=== PATIENT | female | born 1955 | race Caucasian/White ===

== ENCOUNTER 2017-05-22 18:03 | Inpatient (IN) | payer OTHER ==
[2017-05-22] MEDS ORDERED: ONDANSETRON 4 MG/2 ML VIAL ONE ×2 (18:21→22:17)
[2017-05-22] MEDS ORDERED: ONDANSETRON 4 MG/2 ML VIAL IVP ONE ×2 (18:35→22:25)
[2017-05-22] MEDS ORDERED: NS 1,000 ML IV ONE (18:35)
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
--- NOTE | 2017-05-22 18:44 | CPEKG ---
Heart Rate: 72 RR Interval: 833 P-R Interval: 148 QRSD Interval: 84 QT Interval: 376 QTC Interval: 412 P [place]: 20 QRS [place]: 4 T Wave [place]: 25 EKG Severity - NORMAL ECG - EKG Impression: SINUS RHYTHM Electronically Signed By: Jan Mosher 22-May-2017 19:20:53
[2017-05-22 18:53] LABS: % IMMATURE GRANULYOCYTES 0.2 % (0.0-1.1); ABSOLUTE IMMATURE GRANULOCYTES 0.03 10^3/uL (0.00-0.10); ADD DIFF? NO; ADD MORPH? NO; ADD SCAN? NO; ATYPICAL LYMPHOCYTE FLAG 0 (0-99); FRAGMENT RBC FLAG 0 (0-99); HEMATOCRIT 46.2 % (38.0-47.0); HEMOGLOBIN 15.6 g/dL (12.6-16.3); LEFT SHIFT FLG 0 (0-99); LIPEMIA HEMOLYSIS FLAG 90 (0-99); MEAN CELL HEMOGLOBIN 29.5 pg (27.9-34.1); MEAN CELL HEMOGLOBIN CONCENTR. 33.8 g/dL (32.4-36.7); MEAN CELL VOLUME 87.3 fL (81.5-99.8); MEAN PLATELET VOLUME 9.1 fL (8.7-11.7); PLATELET CLUMPS FLAG 0 (0-99); PLATELET COUNT 417 10^3/uL (150-400); RED BLOOD CELL COUNT 5.29 10^6/uL (4.18-5.33); RED CELL DISTRIBUTION WIDTH 12.9 % (11.5-15.2)
[2017-05-22 19:06] LABS: ALANINE AMINOTRANSFERASE 38 IU/L (9-52); ALBUMIN 4.9 g/dL (3.5-5.0); ALKALINE PHOSPHATASE 81 IU/L (38-126); ANION GAP 16 mEq/L (8-16); ASPARTATE AMINOTRANSFERASE 25 IU/L (14-46); BILIRUBIN,TOTAL 1.3 mg/dL (0.1-1.4); BILIRUBIN-CONJUGATED 0.2 mg/dL (0.0-0.5); BILIRUBIN-UNCONJUGATED 1.1 mg/dL (0.0-1.1); CALCIUM 10.2 mg/dL (8.5-10.4); CARBON DIOXIDE 21 mEq/l (22-31); CHLORIDE 100 mEq/L (97-110); CREATININE 0.8 mg/dL (0.6-1.0); GLOMERULAR FILTRATION RATE > 60; GLUCOSE 99 mg/dL (70-100); POTASSIUM 3.9 mEq/L (3.5-5.2); SODIUM 137 mEq/L (134-144); TOTAL PROTEIN 7.7 g/dL (6.3-8.2)
[2017-05-22 19:17] LABS: TROPONIN I < 0.012 ng/mL (0-0.034)
[2017-05-22] MEDS ORDERED: IOPAMIDOL (ISOVUE-300) 100 ML BTL ONE (19:17)
[2017-05-22] MEDS ORDERED: ONDANSETRON 4 MG/2 ML VIAL IVP PRN (23:25)
[2017-05-22] MEDS: D5W 1/2 NS W/ 20 KCl/L 1,000 ML IV SCH (23:38)
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
[2017-05-23] MEDS: D5W 1/2 NS W/ 20 KCl/L 1,000 ML IV SCH (17:11)
[2017-05-24] MEDS: D5W 1/2 NS W/ 20 KCl/L 1,000 ML IV SCH ×3 (00:58→22:41)
[2017-05-24] MEDS: HYDROmorphONE/DILAUDID 1 MG/ML SYR IVP PRN ×2 (00:59→21:29)
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
[2017-05-24] MEDS ORDERED: cefOXitin SODIUM 2 GM in D5W 100 ML IV ONE (13:35)
[2017-05-24] MEDS ORDERED: LR 1,000 ML IV ONE (15:52)
[2017-05-24] MEDS ORDERED: BUPIVACAINE 0.5% 30 ML SDV ONE (16:06)
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
[2017-05-24] MEDS ORDERED: MIDAZOLAM 2 MG/2 ML VIAL IVP ONE (18:02)
[2017-05-24] MEDS ORDERED: MIDAZOLAM 2 MG/2 ML VIAL ONE (18:03)
[2017-05-24] MEDS ORDERED: fentaNYL 100 MCG/2 ML INJ ONE ×2 (18:08→19:31)
[2017-05-24] MEDS ORDERED: PROPOFOL 200 MG/20 ML VIAL ONE ×2 (18:08)
[2017-05-24] MEDS ORDERED: PHENYLEPHRINE HCL 100 MCG/ML SYR ONE (18:39)
[2017-05-24] MEDS ORDERED: ROCURONIUM 50 MG/5 ML VIAL ONE (18:42)
[2017-05-24] MEDS ORDERED: DEXAMETHASONE 4 MG/ML VIAL ONE (19:03)
[2017-05-24] MEDS ORDERED: ONDANSETRON 4 MG/2 ML VIAL ONE (19:03)
[2017-05-24] MEDS ORDERED: ONDANSETRON 4 MG/2 ML VIAL IVP PRN (19:23)
[2017-05-24] MEDS ORDERED: fentaNYL 100 MCG/2 ML INJ IVP PRN ×2 (19:23)
[2017-05-24] MEDS ORDERED: NALOXONE HCL 0.4 MG/ML INJ IVP PRN (19:23)
[2017-05-24] MEDS ORDERED: PROMETHAZINE HCL 25 MG/ML INJ IVP PRN (19:23)
[2017-05-24] MEDS ORDERED: HYDROmorphONE/DILAUDID 1 MG/ML SYR IVP PRN ×2 (19:23)
[2017-05-24] MEDS ORDERED: SUGAMMADEX SODIUM 200 MG/2 ML VIAL IVP ONE (19:25)
--- NOTE | 2017-05-24 19:30 | POSTOPPROG ---
Post Op Note Date of Operation: 05/24/17 Surgeon: Adrian Ford Sports Medicine Specialist: CHUCK Anesthesiologist: RAFIQ Anesthesia: GET(General Endotracheal) Pre-op Diagnosis: SBO Post-op Diagnosis: SAME Indication: PERSISTENT SBO Procedure: LAPAROSCOPY, LAPAROTOMY, ADHESIOLYSIS, REMOVAL SB FOREIGN BODY, ? GALLSTONE Findings: 3 CM GALLSTONE AT POINT OF OBSTRUCTION, MINIMAL ADHESIONS Inf/Abcess present in the surg proc area at time of surgery?: No Depth: Organ Space EBL: Minimal Complications: NONE Specimen(s): SMALL BOWELL GALLSTONE
[2017-05-24] MEDS ORDERED: OXYCODONE/APAP 5/325 TAB PO PRN (19:40)
[2017-05-24] MEDS: ONDANSETRON 4 MG/2 ML VIAL IVP PRN (21:29)
[2017-05-24] MEDS: KETOROLAC 15 MG/1 ML SDV IVP SCH (23:47)
[2017-05-25] MEDS: cefOXitin SODIUM 1 GM in D5W 50 ML IV SCH ×4 (00:29→17:34)
[2017-05-25] MEDS: KETOROLAC 15 MG/1 ML SDV IVP SCH ×4 (06:09→23:45)
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
[2017-05-25] MEDS: D5W 1/2 NS W/ 20 KCl/L 1,000 ML IV SCH ×2 (11:10→20:21)
[2017-05-25] MEDS: HYDROmorphONE/DILAUDID 1 MG/ML SYR IVP PRN (15:57)
[2017-05-26] MEDS: KETOROLAC 15 MG/1 ML SDV IVP SCH ×2 (05:45→12:35)
[2017-05-26] MEDS: D5W 1/2 NS W/ 20 KCl/L 1,000 ML IV SCH (08:28)
[2017-05-26] MEDS: ONDANSETRON 4 MG/2 ML VIAL IVP PRN (14:59)
[2017-05-26] MEDS ORDERED: ONDANSETRON DISINTEGRATING 4 MG TAB PO PRN (16:55)
[2017-05-26 17:09] VITALS: BP 115/76; PULSE 94; RESP 18; TEMP 98.1; O2SAT 93
--- NOTE | 2017-06-20 05:41 | GOP ---
[f rep st] OPERATIVE REPORT DATE OF OPERATION: 05/24/2017 SURGEON: Adrian Ford MD BEHAVIORAL INTERVENTION SPECIALIST: Radha Cole PA-C. ANESTHESIOLOGIST: Dr. Smith. PREOPERATIVE DIAGNOSIS: Persistent small bowel obstruction. POSTOPERATIVE DIAGNOSIS: 1. Persistent small bowel obstruction. 2. Gallstone ileus. PROCEDURE PERFORMED: FINDINGS: Patient was found to have a 3 cm gallstone-appearing object at the point of obstruction i n her distal small bowel. She had minimal adhesions. DESCRIPTION OF PROCEDURE: The patient was taken to the operating room, where she received satisfact ory general endotracheal anesthesia by Dr. Smith, and she was placed in supine position, prepped and draped in usual sterile fashion. A short incision was made in the left upper quadrant. A Veress n eedle was inserted. Pneumoperitoneum was established. Trocar was introduced. Laparoscope introduc ed. Good visualization was obtained. Two other trocars were placed in the lower abdomen under dire ct vision. The bowel was manipulated. There were no significant major adhesions. The proximal bow el was markedly distended, and the distal bowel was completely nondistended. There appeared to be a mass in the small bowel, causing the obstruction. At that point, a short midline periumbilical inc ision was made and carried through the linea alba. Then, the small bowel was delivered up into the wound. The bowel was run for its entirety from the ligament of Treitz to the ileocecal valve, and t he obstruction point was again noted. There were minimal to any adhesions. A single small band had been lysed, but it was unclear if that was the cause of any obstruction. The obstruction point was filled with a gallstone-appearing mass of over 2 cm in size. This was isolated, bowel clamps were placed above and below this area, and an enterotomy was then made. Then, the contents were removed with what appeared to be a large gallstone. This was removed. The bowel was suctioned clear. It w as then closed transversely with a running 3-0 Vicryl suture, then a second row of inverting Lembert 3-0 silk sutures, creating a good open anastomosis. Wound was irrigated. Hemostasis was assured. The Ernie wound protector was removed. New gloves and towels were used, and the wound was then cl osed with a running #1 PDS suture for the linea alba. The wound was infiltrated with 0.5% Marcaine. Subcu was closed with 3-0 Vicryl and the skin with a 4-0 Monocryl subcuticular stitch. She tolera anika the procedure well. Blood loss was negligible. There were no complications. /[id number]/MODL
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
== END 2017-05-26 17:36 | disposition home or self-care (01) | DRG 346 ==
LOC: F1N 22:25 → OBSVTOIN 05-24 10:30
PROVIDERS: ADMIT Surgery; ATTEND Surgery
PROC: 0DC80ZZ Extirpation of Matter from Small Intestine, Open Approach (ICD-10-PCS; principal; 2017-05-24 09:00)
PROC: 0DJD4ZZ Inspection of Lower Intestinal Tract, Percutaneous Endoscopic Approach (ICD-10-PCS; principal; 2017-05-24 09:00)
DX: K56.3 Gallstone ileus (principal); M19.90 Unspecified osteoarthritis, unspecified site
CPT/HCPCS: 96374; J0694; J0697; J1100; J1170; J1885; J2250; J2370; J2405; J2704; J3010; Q9967

== ENCOUNTER 2017-06-01 22:37 | Observation (INO) | payer OTHER ==
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
[2017-06-02] MEDS ORDERED: ACETAMINOPHEN 325 MG TAB PO PRN (00:06)
[2017-06-02] MEDS ORDERED: IBUPROFEN 600 MG TAB PO PRN (00:06)
[2017-06-02 00:56] LABS: % IMMATURE GRANULYOCYTES 0.3 % (0.0-1.1); ABSOLUTE IMMATURE GRANULOCYTES 0.02 10^3/uL (0.00-0.10); ADD DIFF? NO; ADD MORPH? NO; ADD SCAN? NO; ATYPICAL LYMPHOCYTE FLAG 20 (0-99); FRAGMENT RBC FLAG 0 (0-99); HEMATOCRIT 34.9 % (38.0-47.0); HEMOGLOBIN 11.3 g/dL (12.6-16.3); LEFT SHIFT FLG 0 (0-99); LIPEMIA HEMOLYSIS FLAG 80 (0-99); MEAN CELL HEMOGLOBIN 28.9 pg (27.9-34.1); MEAN CELL HEMOGLOBIN CONCENTR. 32.4 g/dL (32.4-36.7); MEAN CELL VOLUME 89.3 fL (81.5-99.8); PLATELET CLUMPS FLAG 10 (0-99); PLATELET COUNT 382 10^3/uL (150-400); RED BLOOD CELL COUNT 3.91 10^6/uL (4.18-5.33); RED CELL DISTRIBUTION WIDTH 13.3 % (11.5-15.2)
[2017-06-02 01:04] LABS: ANION GAP 11 mEq/L (8-16); CARBON DIOXIDE 25 mEq/l (22-31); CHLORIDE 101 mEq/L (97-110); CREATININE 0.7 mg/dL (0.6-1.0); GLOMERULAR FILTRATION RATE > 60; GLUCOSE 80 mg/dL (70-100); POTASSIUM 4.8 mEq/L (3.5-5.2); SODIUM 137 mEq/L (134-144); SPECIMEN HEMOLYSIS 101
[2017-06-02] MEDS: PIPERACILLIN/TAZO 2.25 GM/DEX 50 ML IV SCH ×3 (01:33→13:24)
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
[2017-06-02] MEDS ORDERED: PIPERACILLIN/TAZO 2.25 GM/DEX 50 ML IV SCH (06:00)
--- NOTE | 2017-06-02 16:16 | SOAPPROG ---
SOAP Progress Note Assessment/Plan: Assessment: Afebrile/comfortable/wound clean/abdomen soft with positive bowel sounds/eating well We will switch to oral antibiotics/twice daily wet to dry dressing change Plan: Home in the a.m. with wound care and on Augmentin 06/02/17 16:15 Objective: Vital Signs Temp Pulse Resp BP Pulse Ox 36.8 C 62 16 103/64 96 06/02/17 12:21 06/02/17 12:21 06/02/17 12:21 06/02/17 12:21 06/02/17 12:21 Microbiology 06/02/17 00:25 Gram Stain - Final Abdomen - Swab Laboratory Results 06/02/17 00:42 06/02/17 00:42 06/01/17 06/02/17 06/03/17 05:59 05:59 05:59 Intake Total 100 Output Total 1000 Balance -900 ICD10 Worksheet Patient Problems: Problems Problem Status Onset Wound infection after surgery Acute Dyspnea Acute Primary osteoarthritis of left knee Acute Small bowel obstruction Acute
[2017-06-02 19:27] VITALS: O2SAT 95
[2017-06-02] MEDS: AMOXICILLIN/CLAVULANATE POT 875/125 MG TAB PO SCH (20:14)
[2017-06-03 07:18] VITALS: BP 109/71; PULSE 72; RESP 16; TEMP 98.1
[2017-06-03] MEDS: AMOXICILLIN/CLAVULANATE POT 875/125 MG TAB PO SCH (08:29)
--- NOTE | 2017-06-03 13:24 | SOAPPROG ---
SOAP Progress Note Assessment/Plan: Assessment/Plan: 61 Y F s/p enterotomy for gallstone ileus, now admitted with wound infection, s/p drainage and packing. Wound looking good. Will need home care for wound care. Cultures with klebsiella. Will d/c augmentin and start bactrim based on sensitivities. D/c to home. S: feels good. O: alert, nad no wob rrr abd soft, wound clean, no erythema and skin margins are soft. 06/03/17 13:22 Objective: Vital Signs Temp Pulse Resp BP Pulse Ox 36.7 C 72 16 109/71 95 06/03/17 07:17 06/03/17 07:17 06/03/17 07:17 06/03/17 07:17 06/03/17 07:17 Microbiology 06/02/17 00:25 Gram Stain - Final Abdomen - Swab Laboratory Results 06/02/17 00:42 06/02/17 00:42 06/02/17 06/03/17 06/04/17 05:59 05:59 05:59 Intake Total 100 1000 Output Total 1000 Balance -900 1000 ICD10 Worksheet Patient Problems: Problems Problem Status Onset Wound infection after surgery Acute Dyspnea Acute Primary osteoarthritis of left knee Acute Small bowel obstruction Acute
--- NOTE | 2017-06-03 13:26 | PDIAF ---
- Diagnosis Diagnosis: abdominal wall wound infection Code Status: Full Code - Medication Management Discharge Medications: Medications to Continue on Transfer Ondansetron Odt [Zofran Odt 4 mg (*)] 4 mg PO DAILY PRN 06/01/17 [Last Taken 18:00] Herbals/Supplements -Info Only 1 ea PO DAILY 06/02/17 [Last Taken Unknown] oxyCODONE/APAP 5/325 [Percocet 5/325 (*)] 1 tab PO DAILY PRN 06/02/17 [Last Taken 3 Days Ago] Sulfamethox/Tmp 800/160 mg [Bactrim Ds] 1 tab PO BID #14 tab 06/03/17 [Last Taken Unknown] Fpc Antibiotics: Bactrim DS, i PO bid, x 7 days Discharge Medications: Refer to the Discharge Home Medication list for PRN reason. PICC Care - Routine: N/A - Orders Services needed: Home Care, Registered Nurse Home Care Face to Face: I certify that this patient was under my care and that I had the required [id number] encounter meeting the encounter requirements on the discharge day. My findings support the fact that the patient is homebound as defined in CMS Chapter 7 Medicare Benefits Manual 30.1.1, The condition of the patient is such that there exists a normal inability to leave home and consequently, leaving home would require a considerable and taxing effort. Diet Recommendation: no restrictions on diet Diet Texture: Regular Texture Diet Kyle: Not applicable Wound Care Instructions: Please pack wound with saline moistened gauze every other day and cover with absorbant gauze or abd pad. - Follow Up Care Current Providers and Referrals: Elsa Limon MD [Primary Care Provider] - As per Instructions Adrian Ford MD [Medical Doctor] - (wed as planned)
== END 2017-06-03 16:32 | disposition home or self-care (01) ==
LOC: F3N 06-02 01:17
PROVIDERS: ADMIT Surgery; ATTEND Surgery
DX: T81.4XXA Infection following a procedure, initial encounter (principal); L03.818 Cellulitis of other sites; Z96.652 Presence of left artificial knee joint
CPT/HCPCS: 99285; G0378; J2543

== ENCOUNTER 2017-07-28 05:39 | Day surgery (SDC) | payer OTHER ==
[2017-07-28] MEDS ORDERED: ceFAZolin 2 GM/DEXTROSE 100 ML IV ONE (05:46)
[2017-07-28] MEDS ORDERED: LIDOCAINE 1% 2 ML INJ ID PRN (05:47)
[2017-07-28] MEDS ORDERED: LR 1,000 ML IV ONE (05:47)
[2017-07-28] MEDS ORDERED: LIDOCAINE 1% 2 ML INJ ONE (05:51)
[2017-07-28] MEDS ORDERED: BUPIVACAINE 0.5% 30 ML SDV ONE (06:43)
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
[2017-07-28] MEDS ORDERED: fentaNYL 100 MCG/2 ML INJ ONE ×2 (07:08→08:05)
[2017-07-28] MEDS ORDERED: ONDANSETRON 4 MG/2 ML VIAL ONE ×2 (07:08→09:03)
[2017-07-28] MEDS ORDERED: LIDOCAINE 2% 5 ML SDV ONE (07:08)
[2017-07-28] MEDS ORDERED: PROPOFOL 200 MG/20 ML VIAL ONE (07:08)
[2017-07-28] MEDS ORDERED: KETOROLAC 30 MG/1 ML SDV ONE (07:08)
[2017-07-28] MEDS ORDERED: DEXAMETHASONE 4 MG/ML VIAL ONE (07:08)
[2017-07-28] MEDS ORDERED: SUGAMMADEX SODIUM 200 MG/2 ML VIAL IVP ONE (07:09)
[2017-07-28] MEDS ORDERED: ROCURONIUM 50 MG/5 ML VIAL ONE (07:09)
--- NOTE | 2017-07-28 07:10 | PDHPUP ---
History & Physical Update H&P update statement: This history and physical update is based on an assessment of the patient which was completed after admission or registration (within 24 hours), but prior to the surgery/procedure. H&P update: H&P reviewed & patient examined, no change in patient's condition since H&P completed
[2017-07-28] MEDS ORDERED: epHEDrine SULFATE 10 MG/ML SYR ONE (07:31)
--- NOTE | 2017-07-28 08:16 | POSTOPPROG ---
Post Op Note Date of Operation: 07/28/17 Surgeon: Eusebia Porter Anesthesiologist: tammy Anesthesia: GET(General Endotracheal) Pre-op Diagnosis: gallstone ileus Post-op Diagnosis: gallstone ileus Indication: 61 yo with sbo and gallstone found in intestine Procedure: lap lorraine Findings: gallbladder not inflamed Inf/Abcess present in the surg proc area at time of surgery?: No EBL: Minimal Specimen(s): gallbladder
[2017-07-28] MEDS ORDERED: HYDROCODONE/APAP 5/325 TAB PO PRN (08:30)
[2017-07-28] MEDS ORDERED: OXYCODONE/APAP 5/325 TAB PO PRN (08:30)
[2017-07-28] MEDS ORDERED: ALBUTEROL 3 ML DEYVIAL IH PRN (08:30)
[2017-07-28] MEDS ORDERED: NALOXONE HCL 0.4 MG/ML INJ IVP PRN (08:30)
[2017-07-28] MEDS ORDERED: HYDROmorphONE/DILAUDID 1 MG/ML INJ IVP PRN (08:30)
[2017-07-28] MEDS ORDERED: ACETAMINOPHEN 500 MG TAB PO PRN (08:30)
[2017-07-28] MEDS ORDERED: PROMETHAZINE HCL 25 MG/ML INJ IVP PRN (08:30)
[2017-07-28] MEDS ORDERED: fentaNYL 100 MCG/2 ML INJ IVP PRN (08:30)
--- NOTE | 2017-07-28 08:30 | POSTANESTH ---
Post Anesthetic Evaluation Cardiovascular Status: Normal, Stable Respiratory Status: Normal, Stable Level of Consciousness/Mental Status: Can Participate in Eval Pain Control: Adequate, Prn Tx Ordered Nausea/Vomiting Control: Adequate, Prn Tx Ordered Complications Possibly Related to Anesthesia: None Noted
--- NOTE | 2017-07-28 08:42 | GOP ---
[f rep st] OPERATIVE REPORT DATE OF OPERATION: 07/28/2017 SURGEON: Eusebia Porter MD STEAM DISTRIBUTION SUPERVISOR: Sylvia Self, [employer] ANESTHESIA: General. ANESTHESIOLOGIST: Dr. Santy Muller PREOPERATIVE DIAGNOSIS: Small bowel obstruction with gallstone found as a cause/gallstone ileus. POSTOPERATIVE DIAGNOSIS: Small bowel obstruction with gallstone found as a cause/gallstone ileus. PROCEDURE PERFORMED: Laparoscopic cholecystectomy. FINDINGS: Uninflamed gallbladder. SPECIMENS: Gallbladder. ESTIMATED BLOOD LOSS: 10 cc. INDICATIONS: The patient is a 61-year-old woman who had been previously admitted for a bowel obstruc tion and a gallstone was found in her intestine. She presents for definitive treatment. DESCRIPTION OF PROCEDURE: The patient was brought into the operating room and placed supine on the t able, and general anesthesia was administered. Her abdomen was prepped and draped in the usual steri le fashion. I infiltrated all sites with 0.5% Marcaine prior to making incision. Due to her previou s abdominal incisions, I entered her abdomen directly. I made a skin incision above her umbilicus. I dissected down through the subcutaneous tissues. I divided the anterior rectus sheath. I elevated it and entered the abdomen. There were no adhesions noted. I placed a 10 mm trocar at this area. Under direct vision, I placed a 5 mm subxiphoid trocar and two 5 mm trocars along the right costal ma rgin. She had very few adhesions in her abdomen. I was able to lift her gallbladder cephalad and la terally to expose the triangle of Calot. I carefully skeletonized the cystic artery and cystic duct so that they were the only 2 structures directly entering the gallbladder. They were each singly cli pped toward the gallbladder, doubly clipped distally and transected with scissors. The gallbladder w as removed from the gallbladder fossa with electrocautery. It was placed in an EndoCatch bag and rem lv via the 10 mm trocar. I examined the liver bed, and there were no issues with hemostasis. I ex amined the clips, and they were in satisfactory position. The trocars were removed under direct visi on. The abdomen allowed to desufflate. The fascia at the 10 mm trocar site was closed with 0 Vicryl . Skin closed with 4-0 Monocryl. Dermabond applied. She was awakened in the operating room, extuba anika and transferred to PACU in stable condition. /[id number]/MODL
[2017-07-28] MEDS: ONDANSETRON 4 MG/2 ML VIAL IVP PRN ×2 (09:05→10:27)
[2017-07-28 09:15] VITALS: TEMP 97.3
[2017-07-28] MEDS ORDERED: LIDOCAINE 1% 5 ML SDV ONE (09:16)
[2017-07-28 11:47] VITALS: BP 125/80; PULSE 84; RESP 18; O2SAT 95
== END 2017-07-28 10:40 | disposition home or self-care (01) ==
LOC: FSGY 05:39
PROVIDERS: ATTEND Surgery
PROC: 0FT44ZZ Resection of Gallbladder, Percutaneous Endoscopic Approach (ICD-10-PCS; principal; 2017-07-28 07:15)
DX: K56.3 Gallstone ileus (principal); Z87.820 Personal history of traumatic brain injury
CPT/HCPCS: J0690; J1100; J1885; J2405; J2704; J3010

== ENCOUNTER 2018-11-19 16:02 | Emergency (ER) | payer OTHER ==
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
[2018-11-19 17:33] LABS: PLATELET COUNT 266 10^3/uL (150-400)
[2018-11-19 18:00] VITALS: BP 141/82
--- NOTE | 2018-11-20 17:36 | CPEKG ---
Test Reason : OPEN Blood Pressure : / mmHG Vent. Rate : 070 BPM Atrial Rate : 071 BPM P-R Int : 147 ms QRS Dur : 072 ms QT Int : 384 ms P-R-T Axes : 012 -09 034 degrees QTc Int : 415 ms Sinus rhythm Probable left atrial enlargement Minimal ST elevation, inferior leads Confirmed by Jarrett Parker ([id number]) on 11/20/2018 5:35:37 PM Referred By: Confirmed By:Jarrett Parker
== END 2018-11-19 18:01 | disposition home or self-care (01) ==
DX: R42 Dizziness and giddiness (principal); R07.9 Chest pain, unspecified
CPT/HCPCS: 84484-PO